=== PATIENT | male | born 1965 | race Caucasian/White ===

== ENCOUNTER 2017-03-28 17:56 | Emergency (ER) | payer MEDICARE ==
--- NOTE | ~2017-03-28 | CR210 ---
[facility]. [facility] A Service of [facility] RADIOLOGY TEXT RESULTS PATIENT: LOLI DIXON LOCATION: SED : 63 UNIT #: [id number] AGE: [address]: Sania Haynes APRN SEX: M ORDER DR: [id number] [place] [id number] MR#: [id number] Acc #: [id number] NAME: LOLI DIXON. : 1965 SEX: M STUDY DATE/TIME: 03/28/2017 18:26 UNIT: SED ROOM: STUDY DESCRIPTION: CR Ribs Uni 2 View W PA Ch Lt Attending Physician: Sania Haynes A.P.R.N. Ordering Physician: Sania Alvares A.P.R.N. Primary Care Physician: Chito Mcneill M.D. MEDICAL IMAGING REPORT This report is preliminary unless electronic signature is present. EXAM PA chest with AP and oblique views of the left ribs. COMPARISON Portable chest dated September 03, 2007. INDICATION 51-year-old male with left-sided rib pain after falling March 21, 2017. FINDINGS There is lung hyperexpansion and hyperlucency most consistent with emphysema. No evidence of pneumothorax, pleural effusion or pulmonary contusion. Cardiomediastinal silhouette is within normal limits. Since September 03, 2007 there appears to be development of hyperdense nodules in the right pulmonary apex, most suggestive of calcified granulomas. Calculus in the left kidney. There is a minimally-displaced left lateral fifth rib fracture. There is contour irregularity at the tenth left inferolateral rib which appears to demonstrate callus formation most consistent with a healed fracture. IMPRESSION 1. Minimally-displaced acute appearing fracture of the fifth left lateral rib. There is also contour irregularity of the tenth left posterolateral rib which is favored to represent a chronic healed fracture. Correlation with point tenderness recommended. 2. Left renal calculus. 3. Calcified granulomas in the right upper lobe. Findings most consistent with COPD and emphysema. Dictated by... Jamie Avila M.D. [facility] A Service of [facility] RADIOLOGY TEXT RESULTS PATIENT: LOLI DIXON LOCATION: SED : 63 UNIT #: [id number] AGE: [address]: Sania Haynes APRN SEX: M ORDER DR: THIS IS AN ELECTRONICALLY VERIFIED REPORT Jamie Avila M.D. at 04/03/2017 9:12 PM Jeffrey TD: 03/29/2017 01:00 JOB #: [id number] MEDICAL IMAGING REPORT Page 1 of 1
[~2017-03-28 17:56] MED LIST: AMOXICILLIN500 M1 PO; LORCET 10/650 T1 TAB PO; MORPHINE SULFAT15 MG PO; NABUMETONE PO; NEURONTIN PO; PERCOCET10 PO
== END 2017-03-28 20:11 | disposition home or self-care (01) ==
LOC: SED 17:56
DX: S22.32XA Fracture of one rib, left side, initial encounter for closed fracture (principal); F17.210 Nicotine dependence, cigarettes, uncomplicated; Z88.0 Allergy status to penicillin; Z88.8 Allergy status to other drugs, medicaments and biological substances; W01.198A Fall on same level from slipping, tripping and stumbling with subsequent striking against other object, initial encounter; Y92.009 Unspecified place in unspecified non-institutional (private) residence as the place of occurrence of the external cause; Z98.890 Other specified postprocedural states
CPT/HCPCS: 71100; 99283